=== PATIENT | female | born 1990 | race Caucasian/White ===

== ENCOUNTER 2017-09-27 20:41 | Emergency (ER) | payer MEDICAID ==
[~2017-09-27] VITALS: Ht 162.6 cm; Wt 56.3 kg
[~2017-09-27 20:41] MED LIST: IBUP-81 PO
[2017-09-27 20:49] VITALS: BP 105/67
[2017-09-27] MEDS ORDERED: IBUPROFEN 400 MG TAB PO ONE (20:55)
--- NOTE | 2017-09-27 21:08 | NUR ---
PATIENT AMBULATED TO ER CHAIR E
--- NOTE | 2017-09-27 21:09 | NUR ---
PATIENT PRESENTS TO ED WITH intermittent fever x5 days accompanied with sore throat. PT DENIES N/V/D; SKIN IS PINK/WARM/DRY; AAOX4 WITH EVEN AND STEADY GAIT; LUNGS CLEAR BL; HR EVEN AND REGULAR; PT DENIES ANY CP, SOB AT THIS TIME; PATIENT STATES PAIN OF 8/10 AT THIS TIME; VSS; PATIENT POSITIONED FOR COMFORT; SITTING UPRIGHT IN CHAIR. ER MD MADE AWARE OF PT STATUS.
[2017-09-27] MEDS ORDERED: AMOXICILLIN 500 MG CAP PO ONE (23:30)
[2017-09-28 00:02] VITALS: BP 108/72
--- NOTE | 2017-09-28 00:03 | NUR ---
Patient discharged with v/s stable. Written and verbal after care instructions given and explained. Patient alert, oriented and verbalized understanding of instructions. Ambulatory with steady gait. All questions addressed prior to discharge. ID band removed. Patient advised to follow up with PMD. Rx of IBUPROFEN, AMOXICILLIN given. Patient educated on indication of medication including possible reaction and side effects. Opportunity to ask questions provided and answered.
== END 2017-09-28 00:03 | disposition home or self-care (01) ==
LOC: MED 20:41
DX: J03.90 Acute tonsillitis, unspecified (principal); Z88.1 Allergy status to other antibiotic agents; I49.9 Cardiac arrhythmia, unspecified
CPT/HCPCS: 81025; 99283

== ENCOUNTER 2017-12-07 11:48 | Emergency (ER) | payer MEDICAID, OTHER ==
[~2017-12-07] VITALS: Ht 162.6 cm; Wt 52.7 kg
[2017-12-07 12:08] VITALS: BP 114/72
--- NOTE | 2017-12-07 12:19 | NUR ---
PT. CAME INTO THE ED W/ C/O L UPPER QUADRANT PAIN AND EPIGASTRIC PAIN X 3 DAYS. PT. AAOX4, RR EVEN AND UNLABORED, PT. DENIES SOB, PT. STATES SHE HAS BEEN NAUSEOUS SINCE YESTERDAY AND HAS VOMITED ONCE YESTERDAY. PT.STATES DIAHRRHEA TODAY FORMED 3 TIMES. ER MD NOTIFIED. WILL CONTINUE TO MONITOR.
[2017-12-07] MEDS ORDERED: NACL 0.9% 1,000 ML IV SCH (12:54)
[2017-12-07] MEDS ORDERED: MORPHINE SULFATE 2 MG/ML SYR IVP ONE (12:55)
[2017-12-07] MEDS ORDERED: KETOROLAC 30 MG/ML VIAL IVP ONE (12:55)
[2017-12-07] MEDS ORDERED: METOCLOPRAMIDE 10 MG/2 ML INJ VIAL IVP ONE (12:55)
[2017-12-07] MEDS ORDERED: GLYCOPYRROLATE 0.2 MG/ML VIAL IV ONE (12:55)
[2017-12-07 13:12] LABS: APPEARANCE,URINE CLEAR (CLEAR); BLOOD, URINE NEGATIVE (NEGATIVE); COLOR,URINE YELLOW (YELLOW); LEUKOCYTE ESTERASE ,URINE NEGATIVE (NEGATIVE); NITRITE, URINE NEGATIVE (NEGATIVE); UGLUCOSE NEGATIVE (NEGATIVE)
[2017-12-07 13:16] LABS: BARBITURATE, URINE NEG. ng/ml (NEG <=200); BENZODIAZEPINE, URINE NEG. ng/mL (NEG <=200); CANNABINOID, URINE NEG. ng/mL (NEG <=50); COCAINE, URINE NEG. ng/mL (NEG <=300); OPIATE, URINE NEG. ng/mL (NEG <=2000); PHENCYCLIDINE SCREEN,URINE NEG. ng/mL (NEG <=25)
[2017-12-07 13:17] LABS: BASOPHILS % (AUTO) 0.5 % (0.0-2.0); EOSINOPHILS % (AUTO) 0.5 % (0.0-4.0); HEMATOCRIT 34.3 % (36-48); HEMOGLOBIN 11.5 g/dL (12.0-16.0); LYMPHOCYTES # (AUTO) 1.6 K/uL (2.5-16.5); LYMPHOCYTES % (AUTO) 28.4 % (20.5-51.1); MEAN CORPUSCULAR HEMOGLOBIN 28 pg (27-31); MEAN CORPUSCULAR HGB CONC 34 g/dL (33-37); MONOCYTES # (AUTO) 0.4 K/uL (0.8-1.0); MONOCYTES % (AUTO) 7.7 % (1.7-9.3); NEUTROPHILS # (AUTO) 3.5 K/uL (1.8-7.7); NEUTROPHILS % (AUTO) 62.9 % (42.2-75.2); PLATELET COUNT (AUTO) 308 K/uL (140-450); RED BLOOD CELL COUNT(AUTO) 4.08 MIL/uL (4.20-5.40); WHITE BLOOD COUNT (AUTO) 5.6 K/uL (4.8-10.8)
[2017-12-07 13:18] LABS: BILIRUBIN,URINE NEGATIVE (NEGATIVE)
--- NOTE | 2017-12-07 13:18 | NUR ---
ULTRASOUND AND LAB AT BEDSIDE.
[2017-12-07 13:24] LABS: ANION GAP 17.3 (8-16); CARBON DIOXIDE 25.4 mmol/L (21-32); CREATININE 0.8 mg/dL (0.6-1.3); POTASSIUM 3.7 mmol/L (3.5-5.1)
[2017-12-07 13:30] LABS: ALBUMIN 4.2 g/dL (3.4-5.0); TOTAL BILIRUBIN 0.8 mg/dL (0.0-1.0)
--- NOTE | 2017-12-07 14:30 | NUR ---
PT. RESTING COMFORTABLY IN BED FAMILY MEMBER AT BEDSIDE. WILL CONTINUE TO MONITOR.
--- NOTE | 2017-12-07 15:40 | NUR ---
PT. RESTING COMFORTABLY IN BED RR EVEN AND UNLABORED, BED IN LOWEST POSITION. WILL CONTINUE TO MONITOR.
--- NOTE | 2017-12-07 16:50 | NUR ---
PT. RSETING COMFORTABLY, RR EVEN AND UNLABORED. PT. AAOX4
[2017-12-07 17:38] VITALS: BP 120/70
--- NOTE | 2017-12-07 17:39 | NUR ---
Patient discharged with v/s stable. Written and verbal after care instructions given and explained. Patient alert, oriented and verbalized understanding of instructions. Ambulatory with steady gait. All questions addressed prior to discharge. ID band removed. Patient advised to follow up with PMD. Rx of LEVSIN given. Patient educated on indication of medication including possible reaction and side effects. Opportunity to ask questions provided and answered.
== END 2017-12-07 17:39 | disposition home or self-care (01) ==
LOC: MED 11:48
DX: K80.50 Calculus of bile duct without cholangitis or cholecystitis without obstruction (principal); R11.10 Vomiting, unspecified; Z79.899 Other long term (current) drug therapy; Z88.1 Allergy status to other antibiotic agents
CPT/HCPCS: 36415; 74177; 76705; 80053; 80305; 81003; 81025; 82150; 83690; 85025; 96361; 96374; 96375; 99285; J1885; J2270; J2765; J3490; J7030; Q0092; Q9967

== ENCOUNTER 2019-05-01 08:52 | Emergency (ER) | payer OTHER ==
[~2019-05-01] VITALS: Ht 162.6 cm; Wt 51.7 kg
[2019-05-01 08:55] VITALS: BP 106/60
--- NOTE | 2019-05-01 08:58 | NUR ---
PT TAKEN TO BED 11.
--- NOTE | 2019-05-01 09:06 | NUR ---
28/ C/O 02/26 GENERALIZED HEADACHE X 1 DAYS AND NAUSEA X 1 WEEK AND VOMITTING X2 TODAY NONBLOODY. STATES FAMILY GOT THE STOMACH FLU AND PT HAS IT TOO, HAS BEEN TAKING ZOFRAN FROM BUT RAN OUT OF ZOFRAN AND STARTED VOMITTING THIS AM. STATES SUBJ FEVER THIS AM. STATES MILD EPIGASTRIC PAIN. AFEBRILE NOW. ACTIVE BOWEL SOUNDS. PERRL. EQUAL STRONG HAND FAMILY PRACTITIONER BILATERALLY. FULL CLEAR SPEECH. EVEN STEADY GAIT. HX- DENIES
[2019-05-01] MEDS ORDERED: ONDANSETRON 4 MG ODT PO ONE (09:15)
--- NOTE | 2019-05-01 09:27 | NUR ---
Patient discharged with v/s stable. Written and verbal after care instructions given and explained. Patient alert, oriented and verbalized understanding of instructions. Ambulatory with steady gait. All questions addressed prior to discharge. ID band removed. Patient advised to follow up with PMD. Rx of Zofran and Pepcid given. Patient educated on indication of medication including possible reaction and side effects. Opportunity to ask questions provided and answered.
[2019-05-01 09:28] VITALS: BP 106/60
== END 2019-05-01 09:27 | disposition home or self-care (01) ==
LOC: MED 08:52
DX: K29.70 Gastritis, unspecified, without bleeding (principal); Z79.1 Long term (current) use of non-steroidal anti-inflammatories (NSAID); Z88.1 Allergy status to other antibiotic agents
CPT/HCPCS: 81025; 99283; Q0162

== ENCOUNTER 2019-05-19 21:49 | Emergency (ER) | payer OTHER ==
[~2019-05-19] VITALS: Ht 165.1 cm; Wt 49.9 kg
[2019-05-19 22:00] VITALS: BP 106/67
--- NOTE | 2019-05-19 22:00 | NUR ---
28 Y/O FEMALE BIB FAMILY. REPORTS RECTAL BLEEDING STARTING TODAY, STATES THE BLOOD IS DARK AND SHE IS STILL BLEEDING. STATES SHE HAS PAIN IN HER RIGHT SIDE THAT STARTED YESTERDAY MORNING. PAIN IS A 9/10 SHARP; ACUTE PAIN STARTING FROM THE RIGHT SIDE OF ABDOMEN TO THE BACK. ABDOMEN SOFT AND FLAT; ACTIVE BOWEL SOUNDS ON ALL FOUR QUADRANTS. SLIGHT TENDERNESS UPON PALPATION. ERMD MADE AWARE. SIDE RAILSX1. VSS. PMH:DENIES RX:ERYTHROMYCIN RX:DENIES
--- NOTE | 2019-05-19 22:56 | NUR ---
Dr. Peace examining patient.
[2019-05-19] MEDS ORDERED: NACL 0.9% 1,000 ML IV ONE (23:05)
[2019-05-19] MEDS ORDERED: KETOROLAC 15 MG/ML VIAL IVP ONE (23:05)
[2019-05-19] MEDS ORDERED: ONDANSETRON 4 MG/2 ML VIAL IVP ONE (23:05)
[2019-05-19 23:35] LABS: BASOPHILS % (AUTO) 0.9 % (0.0-2.0); EOSINOPHILS # (AUTO) 0.1 K/uL (0-0.4); EOSINOPHILS % (AUTO) 1.7 % (0.0-4.0); HEMATOCRIT 34.4 % (36-48); HEMOGLOBIN 11.3 g/dL (12.0-16.0); LYMPHOCYTES # (AUTO) 2.5 K/uL (2.5-16.5); LYMPHOCYTES % (AUTO) 45.8 % (20.5-51.1); MEAN CORPUSCULAR HEMOGLOBIN 29 pg (27-31); MEAN CORPUSCULAR HGB CONC 33 g/dL (33-37); MEAN CORPUSCULAR VOLUME 88.3 fL (80-94); MONOCYTES # (AUTO) 0.3 K/uL (0.8-1.0); MONOCYTES % (AUTO) 5.8 % (1.7-9.3); NEUTROPHILS # (AUTO) 2.5 K/uL (1.8-7.7); NEUTROPHILS % (AUTO) 45.8 % (42.2-75.2); PLATELET COUNT (AUTO) 345 K/uL (140-450); RED BLOOD CELL COUNT(AUTO) 3.89 MIL/uL (4.20-5.40); RED CELL DISTRIBUTION WIDTH 14.3 % (11.6-13.7); WHITE BLOOD COUNT (AUTO) 5.4 K/uL (4.8-10.8)
[2019-05-19 23:46] LABS: ANION GAP 11.6 (8-16); CARBON DIOXIDE 27.3 mmol/L (21-32); CREATININE 0.7 mg/dL (0.6-1.3); POTASSIUM 3.9 mmol/L (3.5-5.1)
[2019-05-19 23:54] LABS: ALBUMIN 3.6 g/dL (3.4-5.0); TOTAL BILIRUBIN 0.3 mg/dL (0.0-1.0)
[2019-05-20 00:04] LABS: PROTHROMBIN TIME 10.7 secs (10.8-13.4)
--- NOTE | 2019-05-20 00:48 | NUR ---
PT TAKEN TO CT
--- NOTE | 2019-05-20 01:02 | NUR ---
PT RETURN FROM CT
--- NOTE | 2019-05-20 03:22 | NUR ---
PT. IS RESTING IN BED WITH EYES CLOSED. VSS. PARTNER AT BEDSIDE. WILL CONTINUE TO MONITOR
--- NOTE | 2019-05-20 03:56 | NUR ---
Patient discharged with v/s stable. Written and verbal after care instructions given and explained. Patient alert, oriented and verbalized understanding of instructions. Ambulatory with steady gait. All questions addressed prior to discharge. ID band removed. Patient advised to follow up with PMD. Rx of HYDROCORTISONE; MOTRIN; COLACE given. Patient educated on indication of medication including possible reaction and side effects. Opportunity to ask questions provided and answered.
[2019-05-20 03:58] VITALS: BP 100/58
== END 2019-05-20 03:56 | disposition home or self-care (01) ==
LOC: MED 21:49
DX: K62.5 Hemorrhage of anus and rectum (principal); R11.0 Nausea; Z79.899 Other long term (current) drug therapy
CPT/HCPCS: 36415; 74176; 80053; 81025; 85025; 85610; 85730; 96374; 96375; 99284; J1885; J2405; J7030

== ENCOUNTER 2019-06-07 21:53 | Emergency (ER) | payer OTHER ==
[~2019-06-07] VITALS: Ht 165.1 cm; Wt 48.5 kg
[2019-06-07 22:01] VITALS: BP 116/60
--- NOTE | 2019-06-07 22:01 | NUR ---
TO BED # 02 AMBULATORY
--- NOTE | 2019-06-07 22:20 | NUR ---
28 Y/O F PRESENTS TO ED WITH C/O INTERMINTENT FEVER, BODY ACHES, AND NASAL CONGESTION X2 DAYS. +NON-PRODUCTIVE COUGH. LUNGS CLEAR THROUGHOUT. +SICK CONTACTS. PT RECIEVED FLU VACCINATION. PT SELF MEDICATED WITH TYLENOL AND AMOXICLLIN AT HOME. BEDRAIL X1 UP. FAMILY AT BEDSIDE. WILL CONTINUE TO MONITOR.
[2019-06-07] MEDS ORDERED: KETOROLAC 60 MG/2 ML VIAL IM ONE (23:05)
--- NOTE | 2019-06-07 23:48 | NUR ---
REPORTS RELIEF IN PAIN; 6/10. PT STATES PAIN LEVEL IS TOLERABLE. TORADOL EFFECTIVE.
[2019-06-07 23:51] VITALS: BP 116/60
--- NOTE | 2019-06-07 23:51 | NUR ---
Patient discharged with v/s stable. Written and verbal after care instructions given and explained. Patient alert, oriented and verbalized understanding of instructions. Ambulatory with steady gait. All questions addressed prior to discharge. ID band removed. Patient advised to follow up with PMD. Rx of Motrin 600 mg, Zofran and Tamiflu given. Patient educated on indication of medication including possible reaction and side effects. Opportunity to ask questions provided and answered.
== END 2019-06-07 23:51 | disposition home or self-care (01) ==
LOC: MED 21:53
DX: R50.9 Fever, unspecified (principal); R05 Cough; M79.10 Myalgia, unspecified site; Z79.899 Other long term (current) drug therapy
CPT/HCPCS: 81002; 81025; 96372; 99283; J1885

== ENCOUNTER 2019-11-27 21:30 | Emergency (ER) | payer OTHER ==
[~2019-11-27] VITALS: Ht 165.1 cm; Wt 52.2 kg
[2019-11-27 21:40] VITALS: BP 107/68
--- NOTE | 2019-11-27 21:50 | NUR ---
TO ER BED 7
--- NOTE | 2019-11-27 22:00 | NUR ---
29F PT PRESENTS TO ED WITH C/O LEFT EYE PAIN AND SENSITIVITY TO LIGHT S/P FALL AND HIT EYE ON DRESSER. DENIES LOC. -SOB/-COUGH. RR EVEN AND UNLABORED. ALLERGIES TO ERYTHROMYCIN NO PREVIOUS MEDICAL HX
[2019-11-27] MEDS ORDERED: FLUORESCEIN OPTH STRIP 1 MG OP ONE (22:15)
[2019-11-27 23:08] VITALS: BP 107/68
== END 2019-11-28 00:07 | disposition home or self-care (01) ==
LOC: MED 21:30
DX: S05.12XA Contusion of eyeball and orbital tissues, left eye, initial encounter (principal); Z79.899 Other long term (current) drug therapy; X58.XXXA Exposure to other specified factors, initial encounter; Y93.89 Activity, other specified; Y92.89 Other specified places as the place of occurrence of the external cause; Y99.8 Other external cause status
CPT/HCPCS: 99282

== ENCOUNTER 2020-04-23 16:15 | Emergency (ER) | payer OTHER, SELFPAY ==
[~2020-04-23] VITALS: Ht 162.6 cm; Wt 52.2 kg
[2020-04-23 16:36] VITALS: BP 113/66
--- NOTE | 2020-04-23 16:42 | NUR ---
29 y/o female from home c/o fever, chills, sore throat, and cough x 1 wk. + covid contact in the house. rr even and unlabored, does not appear in any distress. VSS. Placed in tent for covid precautions
--- NOTE | 2020-04-23 16:57 | NUR ---
COVID SWAB DONE. SENT TO LAB.
--- NOTE | 2020-04-23 17:41 | NUR ---
Patient discharged with v/s stable. Written and verbal after care instructions given and explained. Patient alert, oriented and verbalized understanding of instructions. Ambulatory with steady gait. All questions addressed prior to discharge. ID band removed. Patient advised to follow up with PMD. Rx of TYLENOL & PROMETHAZINE given. Patient educated on indication of medication including possible reaction and side effects. Opportunity to ask questions provided and answered.
[2020-04-23 17:42] VITALS: BP 113/66
== END 2020-04-23 17:41 | disposition home or self-care (01) ==
LOC: MED 16:15
DX: U07.1 COVID-19 (principal); Z88.1 Allergy status to other antibiotic agents; Z79.899 Other long term (current) drug therapy
CPT/HCPCS: 99283; U0003

== ENCOUNTER 2021-06-17 17:08 | Emergency (ER) | payer OTHER, SELFPAY ==
[~2021-06-17] VITALS: Ht 162.6 cm; Wt 54.4 kg
[2021-06-17 17:37] VITALS: BP 106/64
--- NOTE | 2021-06-17 17:46 | NUR ---
flu and novel swabbed at this time
[2021-06-17] MEDS ORDERED: IBUPROFEN 600 MG TAB PO ONE (17:55)
[2021-06-17] MEDS ORDERED: DEXAMETHASONE 10 MG/ML VIAL IM ONE (17:55)
[2021-06-17] MEDS ORDERED: AMOX-1000 PO (18:00)
[2021-06-17] MEDS ORDERED: IBUP-2213 PO (18:00)
[2021-06-17 19:03] VITALS: BP 113/70
--- NOTE | 2021-06-17 19:04 | NUR ---
Patient discharged with v/s stable. Written and verbal after care instructions given STREP THROAT and explained. Patient alert, oriented and verbalized understanding of instructions. Ambulatory with steady gait. All questions addressed prior to discharge. ID band removed. Patient advised to follow up with PMD. Rx of AUGMENTIN AND IBUPROFEN given. Patient educated on indication of medication including possible reaction and side effects. Opportunity to ask questions provided and answered.
== END 2021-06-17 19:04 | disposition home or self-care (01) ==
LOC: MED 17:08
DX: J02.0 Streptococcal pharyngitis (principal); Z88.1 Allergy status to other antibiotic agents; Z79.899 Other long term (current) drug therapy
CPT/HCPCS: 96372; 99283; J1100

== ENCOUNTER 2022-02-28 22:28 | Emergency (ER) | payer OTHER ==
[~2022-02-28] VITALS: Ht 162.6 cm; Wt 52.6 kg
[~2022-02-28 22:28] MED LIST changes: +AMOX-1000 PO; +IBUP-2213 PO
[2022-02-28 23:11] VITALS: BP 116/60
[2022-02-28] MEDS ORDERED: IBUPROFEN 600 MG TAB PO ONE (23:15)
[2022-02-28] MEDS ORDERED: ACETAMINOPHEN 325 MG TAB PO ONE (23:15)
--- NOTE | 2022-02-28 23:21 | NUR ---
PT MEDICATED, SWABS COLLECTED AND TAKEN TO LAB.
--- NOTE | 2022-03-01 00:37 | NUR ---
ORAL TEMP RECHECK 98.6. HR DECREASED TO 104.
--- NOTE | 2022-03-01 01:14 | NUR ---
Lenny stanley in [facility] - 03/01/22 at 0114 by LEANDRA PT TAKEN TO CHAIR Herrera
--- NOTE | 2022-03-01 01:14 | NUR ---
PT TO NAZ
[2022-03-01] MEDS ORDERED: NAPR-54 PO (01:43)
[2022-03-01] MEDS ORDERED: AMOX500C25 PO (01:43)
[2022-03-01] MEDS ORDERED: ACET-10509 PO (01:43)
[2022-03-01] MEDS ORDERED: DEXAMETHASONE 10 MG/ML VIAL PO ONE (01:45)
[2022-03-01 01:50] VITALS: BP 116/60
--- NOTE | 2022-03-01 01:50 | NUR ---
Patient discharged with v/s stable. Written and verbal after care instructions given and explained. Patient alert, oriented and verbalized understanding of instructions. Ambulatory with steady gait. All questions addressed prior to discharge. ID band removed. Patient advised to follow up with PMD. Rx of TYLENOL, AMOXICILLIN, NAPROSYN given. Patient educated on indication of medication including possible reaction and side effects. Opportunity to ask questions provided and answered.
== END 2022-03-01 01:50 | disposition home or self-care (01) ==
LOC: MED 22:28
DX: J02.9 Acute pharyngitis, unspecified (principal); Z20.822 Contact with and (suspected) exposure to COVID-19; Z79.899 Other long term (current) drug therapy; Z79.1 Long term (current) use of non-steroidal anti-inflammatories (NSAID); Z79.2 Long term (current) use of antibiotics; Z88.1 Allergy status to other antibiotic agents
CPT/HCPCS: 87081; 87426; 87804; 99284; J1100

== ENCOUNTER 2024-02-04 00:17 | Emergency (ER) | payer OTHER ==
[~2024-02-04] VITALS: Ht 162.6 cm; Wt 54.4 kg
[~2024-02-04 00:17] MED LIST changes: +ACET500T99 PO; +AMOX500C25 PO; +NAPR-337 PO
[2024-02-04 00:39] VITALS: BP 96/40; PULSE 84; RESP 16; TEMP 98; O2SAT 100
[2024-02-04 01:01] LABS: APPEARANCE,URINE CLEAR (CLEAR); BILIRUBIN,URINE NEGATIVE (NEGATIVE); BLOOD, URINE NEGATIVE (NEGATIVE); COLOR,URINE YELLOW (YELLOW); LEUKOCYTE ESTERASE ,URINE NEGATIVE (NEGATIVE); NITRITE, URINE NEGATIVE (NEGATIVE); PROTEIN,URINE NEGATIVE (NEGATIVE); UGLUCOSE NEGATIVE (NEGATIVE); UROBILINOGEN,URINE 0.2 EU/dL (0.2 - 1)
[2024-02-04 01:11] LABS: BASOPHILS # (AUTO) 0.1 K/uL (0.00-0.22); BASOPHILS % (AUTO) 0.8 % (0.0-2.0); EOSINOPHILS # (AUTO) 0.1 K/uL (0-0.4); EOSINOPHILS % (AUTO) 0.8 % (0.0-4.0); HEMATOCRIT 34.4 % (36-48); HEMOGLOBIN 11.4 g/dL (12.0-16.0); LYMPHOCYTES # (AUTO) 2.6 K/uL (2.5-16.5); LYMPHOCYTES % (AUTO) 39.1 % (20.5-51.1); MEAN CORPUSCULAR HEMOGLOBIN 28 pg (27-31); MEAN CORPUSCULAR HGB CONC 33 g/dL (33-37); MONOCYTES # (AUTO) 0.4 K/uL (0.8-1.0); MONOCYTES % (AUTO) 6.5 % (1.7-9.3); NEUTROPHILS # (AUTO) 3.4 K/uL (1.8-7.7); NEUTROPHILS % (AUTO) 52.8 % (42.2-75.2); PLATELET COUNT (AUTO) 321 K/uL (140-450); RED BLOOD CELL COUNT(AUTO) 4.05 MIL/uL (4.20-5.40); RED CELL DISTRIBUTION WIDTH 15.4 % (11.6-13.7); WHITE BLOOD COUNT (AUTO) 6.5 K/uL (4.8-10.8)
[2024-02-04 01:22] LABS: ANION GAP 11.1 (8-16); CALCIUM 8.6 mg/dL (8.5-10.1); CARBON DIOXIDE 28.7 mmol/L (21-32); CREATININE 0.8 mg/dL (0.6-1.3); POTASSIUM 3.8 mmol/L (3.5-5.1)
[2024-02-04 01:27] LABS: ALBUMIN 3.7 g/dL (3.4-5.0); BILIRUBIN,DIRECT 0.1 mg/dL (0.0-0.3); TOTAL BILIRUBIN 0.2 mg/dL (0.0-1.0); TOTAL PROTEIN, SERUM 7.2 g/dL (6.4-8.2)
[2024-02-04] MEDS ORDERED: IBUP-1842 PO (02:06)
[2024-02-04] MEDS: IBUPROFEN 400 MG TAB PO ONE (02:16)
[2024-02-04 02:22] VITALS: BP 116/65; PULSE 81; RESP 18; TEMP 98; O2SAT 99
== END 2024-02-04 02:22 | disposition home or self-care (01) ==
LOC: MED 00:17
DX: R10.9 Unspecified abdominal pain (principal); Z79.2 Long term (current) use of antibiotics; Z79.1 Long term (current) use of non-steroidal anti-inflammatories (NSAID); Z79.899 Other long term (current) drug therapy; Z88.1 Allergy status to other antibiotic agents
CPT/HCPCS: 36415; 74018; 80048; 80076; 81003; 81025; 83690; 85025; 99284; Q0092

== ENCOUNTER 2024-04-13 16:56 | Emergency (ER) | payer OTHER ==
[~2024-04-13] VITALS: Ht 162.6 cm; Wt 56.7 kg
[~2024-04-13 16:56] MED LIST changes: +IBUP-1842 PO
[2024-04-13 17:14] VITALS: BP 98/59; PULSE 75; RESP 16; TEMP 98.2; O2SAT 99
[2024-04-13 17:31] VITALS: BP 98/59; PULSE 75; RESP 16; TEMP 98.2
[2024-04-13 17:32] VITALS: O2SAT 99
== END 2024-04-13 18:36 | disposition home or self-care (01) ==
LOC: MED 16:56
DX: S63.616A Unspecified sprain of right little finger, initial encounter (principal); Z79.899 Other long term (current) drug therapy; Z88.1 Allergy status to other antibiotic agents; W18.39XA Other fall on same level, initial encounter; Y92.89 Other specified places as the place of occurrence of the external cause; Y93.89 Activity, other specified; Y99.8 Other external cause status
CPT/HCPCS: 73130; 99283